=== PATIENT | female | born 1940 | race Caucasian/White ===

== ENCOUNTER 2021-03-21 09:52 | Day surgery (SDC) | payer MEDICARE, BC ==
[~2021-03-21] VITALS: Ht 162.6 cm; Wt 126.0 kg
[2021-03-21 10:35] VITALS: BP 183/105
[2021-03-21] MEDS ORDERED: PROPOFOL 50 ML ONE (10:40)
[2021-03-21] MEDS ORDERED: ASPI81TA45 PO (10:49)
[2021-03-21] MEDS ORDERED: D-MA50PO PO (10:49)
[2021-03-21] MEDS ORDERED: TYLENOL PO (10:49)
[2021-03-21] MEDS ORDERED: UBID50TA3 PO (10:49)
[2021-03-21] MEDS ORDERED: PRAV20TA2 PO (10:49)
[2021-03-21] MEDS ORDERED: VIT D PO (10:49)
[2021-03-21] MEDS ORDERED: CALCIUM PO (10:49)
[2021-03-21] MEDS ORDERED: METO-99 PO (10:49)
[2021-03-21] MEDS ORDERED: LOSA100T14 PO (10:49)
[2021-03-21] MEDS ORDERED: LACTATED RINGERS 1,000 ML IV SCH (11:00)
[2021-03-21] MEDS ORDERED: CHLORHEXIDINE 15 ML UDC PO ONE (11:00)
[2021-03-21] MEDS ORDERED: MIDAZOLAM 1 MG/ML, 2ML ONE (11:01)
[2021-03-21 11:21] LABS: ALANINE AMINOTRANSFERASE 16 U/L (12-78); ALBUMIN 3.5 g/dL (3.4-5.0); ANION GAP 10 mmol/L (5-15); CALCIUM 9.4 mg/dL (8.5-10.1); CHLORIDE 105 mmol/L (98-107); CREATININE 0.66 mg/dL (0.55-1.02)
[2021-03-21 11:24] LABS: ALKALINE PHOSPHATASE 75 U/L (45-117); BILIRUBIN,TOTAL 0.7 mg/dL (0.2-1.0); TOTAL PROTEIN 8.3 g/dL (6.4-8.2)
[2021-03-21] MEDS ORDERED: LABETALOL 5MG/ML, 20ML ONE (12:44)
== END 2021-03-21 13:25 | disposition home or self-care (01) ==
LOC: OUT 09:52
PROVIDERS: ATTEND Internal Medicine Geriatric Medicine
DX: Z12.11 Encounter for screening for malignant neoplasm of colon (principal); R10.84 Generalized abdominal pain; R11.0 Nausea; K57.10 Diverticulosis of small intestine without perforation or abscess without bleeding; K52.89 Other specified noninfective gastroenteritis and colitis; F32.9 Major depressive disorder, single episode, unspecified; I10 Essential (primary) hypertension; E66.01 Morbid (severe) obesity due to excess calories; Z68.43 Body mass index [BMI] 50.0-59.9, adult; Z79.899 Other long term (current) drug therapy; Z87.440 Personal history of urinary (tract) infections; Z87.891 Personal history of nicotine dependence; Z88.8 Allergy status to other drugs, medicaments and biological substances; Z98.890 Other specified postprocedural states; Z82.49 Family history of ischemic heart disease and other diseases of the circulatory system; Z83.3 Family history of diabetes mellitus
CPT/HCPCS: 36415; 43239; 45380; 80053; 88305; 93005; J2250; J2704

== ENCOUNTER 2021-04-16 10:45 | Day surgery (SDC) | payer MEDICARE, BC, MEDICAID ==
[~2021-04-16] VITALS: Ht 163.8 cm; Wt 125.9 kg
[~2021-04-16 10:45] MED LIST: ASPI81TA45 PO; CALCIUM PO; CHLO25TA PO; D-MA50PO PO; L.AC1CAP6 PO; LOSA100T14 PO; METO-99 PO; PRAV20TA2 PO; TYLENOL PO; UBID50TA3 PO; VIT D PO; Vitamin B12 PO
[2021-04-16 11:29] VITALS: BP 176/104
[2021-04-16] MEDS ORDERED: LACTATED RINGERS 1,000 ML IV SCH (11:30)
[2021-04-16] MEDS ORDERED: CHLORHEXIDINE 15 ML UDC PO ONE (11:30)
[2021-04-16] MEDS ORDERED: CHLORHEXIDINE 15 ML UDC ONE (11:31)
[2021-04-16] MEDS ORDERED: LABETALOL 5MG/ML, 20ML IV PRN (12:00)
[2021-04-16] MEDS ORDERED: DIAZEPAM 5 MG/ML, 2ML IVPush PRN (12:00)
[2021-04-16] MEDS ORDERED: ACETAMINOPHEN 325 MG TABLET PO PRN (12:00)
[2021-04-16] MEDS ORDERED: ONDANSETRON 2MG/ML, 2ML IVPush PRN (12:00)
[2021-04-16] MEDS ORDERED: hydrALAzine 20 MG/ML, 1ML IV PRN (12:00)
[2021-04-16] MEDS ORDERED: PROPOFOL 50 ML ONE ×2 (12:14→12:17)
[2021-04-16] MEDS ORDERED: FENTANYL PF 250 MCG/5ML ONE (12:14)
== END 2021-04-16 14:20 | disposition home or self-care (01) ==
LOC: OUT 10:45
PROVIDERS: ATTEND Internal Medicine Geriatric Medicine
DX: K31.89 Other diseases of stomach and duodenum (principal); I10 Essential (primary) hypertension; F32.9 Major depressive disorder, single episode, unspecified; E66.01 Morbid (severe) obesity due to excess calories; Z68.43 Body mass index [BMI] 50.0-59.9, adult; Z79.899 Other long term (current) drug therapy; Z87.891 Personal history of nicotine dependence; Z88.8 Allergy status to other drugs, medicaments and biological substances; Z82.49 Family history of ischemic heart disease and other diseases of the circulatory system; Z83.3 Family history of diabetes mellitus
CPT/HCPCS: 43236; 43251; 43259; J2704; J3010; J7120